=== PATIENT | male | born 1980 | race Caucasian/White ===

== ENCOUNTER 2016-05-15 17:23 | Observation (INO) | payer SELFPAY ==
[~2016-05-15] VITALS: Ht 182.9 cm; Wt 75.0 kg
[2016-05-15 17:26] VITALS: BP 144/96; PULSE 64; RESP 18; TEMP 99; O2SAT 97
[2016-05-15] MEDS ORDERED: SODIUM CHLOR 0.9% 1000 ML INJ 1,000 ML IV SCH (17:36)
[2016-05-15 17:38] VITALS: O2SAT 99
--- NOTE | 2016-05-15 17:39 | PD ---
HPI Chief Complaint: GI Complaint Time Seen by Provider: 17:32 Travel History International Travel<30 days: No Contact w/Intl Traveler<30days: No Traveled to known affect area: No History of Present Illness HPI 36-year-old male here for evaluation of nausea, vomiting, and epigastric abdominal discomfort. Symptoms started yesterday with nausea. Since around 10 AM today the patient has had several episodes of vomiting which consisted of bilious material. No hematemesis. States that he had diarrhea 2 days ago. He is having some epigastric discomfort when he vomits. No chest pain. He reports history of pancreatitis secondary to alcoholism. States he used to drink a significant amount of alcohol daily, however has decreased his amount to a few beers a day. Last alcoholic beverage was yesterday. No history of abdominal surgery. No fever or chills. [facility] Social History Alcohol Use: Yes Tobacco Use: Yes Allergies-Medications (Allergen,Severity, Reaction): Coded Allergies: Penicillin (Verified Allergy, Unknown, 05/15/16) Reported Meds & Prescriptions Reported Meds & Active Scripts Active Review of Systems Except as stated in HPI: all other systems reviewed are Neg Physical Exam Narrative GENERAL: Well-developed, well-nourished, comfortable, no acute distress. SKIN: Warm and dry. HEAD: Atraumatic. Normocephalic. EYES: Pupils equal and round. No scleral icterus. No injection or drainage. ENT: Mucous membranes pink and moist. CARDIOVASCULAR: Regular rate and rhythm. RESPIRATORY: No accessory muscle use. Clear to auscultation. Breath sounds equal bilaterally. GASTROINTESTINAL: Abdomen soft, non-tender, nondistended. Normal bowel sounds. MUSCULOSKELETAL: No obvious deformities. No clubbing. No cyanosis. No edema. NEUROLOGICAL: Awake and alert. No obvious cranial nerve deficits. Motor grossly within normal limits. Normal speech. PSYCHIATRIC: Appropriate mood and affect; insight and judgment normal. Data Data Last Documented VS Vital Signs Date Time Temp Pulse Resp B/P Pulse Ox O2 Delivery O2 Flow Rate FiO2 05/15/16 19:19 20 05/15/16 17:38 99 05/15/16 17:26 99.0 64 144/96 Room Air Orders Complete Blood Count With Diff (05/15/16 17:36) Comprehensive Metabolic Panel (05/15/16 17:36) Lipase (05/15/16 17:36) Iv Access Insert/Monitor (05/15/16 17:36) Ecg Monitoring (05/15/16 17:36) Oximetry (05/15/16 17:36) Ondansetron Inj (Zofran Inj) (05/15/16 17:45) Pantoprazole Inj (Protonix Inj) (05/15/16 17:45) Sodium Chlor 0.9% 1000 Ml Inj (Ns 1000 M (05/15/16 17:36) Sodium Chloride 0.9% Flush (Ns Flush) (05/15/16 17:45) Electrocardiogram (05/15/16 17:36) Al-Mag Hy-Si 40-40-4 Mg/Ml Liq (Mag-Al P (05/15/16 17:45) Lidocaine 2% Viscous (Xylocaine 2% Visco (05/15/16 17:45) Ct Abd/Pel W Iv Contrast(Rout) (05/15/16 18:37) Morphine Inj (Morphine Inj) (05/15/16 18:45) Ondansetron Inj (Zofran Inj) (05/15/16 18:45) Iohexol 350 Inj (Omnipaque 350 Inj) (05/15/16 18:46) Admit Order (Ed Use Only) (05/15/16 19:33) Sodium Chlor 0.9% 1000 Ml Inj (Ns 1000 M (05/15/16 19:45) Labs Laboratory Tests Test 05/15/16 17:40 White Blood Count 13.8 TH/MM3 Red Blood Count 4.33 MIL/MM3 Hemoglobin 13.6 GM/DL Hematocrit 39.9 % Mean Corpuscular Volume 92.2 FL Mean Corpuscular Hemoglobin 31.4 PG Mean Corpuscular Hemoglobin 34.1 % Concent Red Cell Distribution Width 12.8 % Platelet Count 225 TH/MM3 Mean Platelet Volume 8.6 FL Neutrophils (%) (Auto) 79.8 % Lymphocytes (%) (Auto) 14.5 % Monocytes (%) (Auto) 5.3 % Eosinophils (%) (Auto) 0.3 % Basophils (%) (Auto) 0.1 % Neutrophils # (Auto) 11.0 TH/MM3 Lymphocytes # (Auto) 2.0 TH/MM3 Monocytes # (Auto) 0.7 TH/MM3 Eosinophils # (Auto) 0.0 TH/MM3 Basophils # (Auto) 0.0 TH/MM3 CBC Comment DIFF FINAL Differential Comment Sodium Level 141 MEQ/L Potassium Level 3.9 MEQ/L Chloride Level 107 MEQ/L Carbon Dioxide Level 26.1 MEQ/L Anion Gap 8 MEQ/L Blood Urea Nitrogen 12 MG/DL Creatinine 1.44 MG/DL Estimat Glomerular Filtration 55 ML/MIN Rate Random Glucose 138 MG/DL Calcium Level 8.9 MG/DL Total Bilirubin 0.3 MG/DL Aspartate Amino Transf 15 U/L (AST/SGOT) Alanine Aminotransferase 21 U/L (ALT/SGPT) Alkaline Phosphatase 97 U/L Total Protein 7.7 GM/DL Albumin 4.2 GM/DL Lipase 684 U/L [facility] Medical Decision Making Medical Screen Exam Complete: Yes Emergency Medical Condition: Yes Interpretation(s) EKG: Sinus, rate 56, normal axis, normal intervals, no acute ischemic abnormality. Differential Diagnosis Gastroenteritis, gastritis, peptic ulcer disease, pancreatitis, hepatobiliary disease, dehydration, viral illness, food poisoning Narrative Course Vital signs reviewed. CBC shows WBC 13.8, hemoglobin 13.6, hematocrit 39.9, platelets 225, neutrophils 79%. CMP is markable for creatinine 1.44, GFR 55, otherwise unremarkable. Lipase is 684. CT abdomen pelvis shows mild acute uncomplicated pancreatitis. Patient was made aware of all findings. He was given pain medication and antiemetics. He still feels a little nauseous and is having some epigastric abdominal pain. He will be admitted for overnight observation for further treatment and evaluation of acute pancreatitis. Case discussed with hospitalist Dr. Allen who will admit the patient to her service. Diagnosis Primary Impression: Acute pancreatitis Qualified Code: K85.20 - Alcohol-induced acute pancreatitis, unspecified complication status Admitting Information Admitting Physician Requests: Observation Scripts Ondansetron Odt 4 Mg Tab4 Mg SL Q6HR PRN (Nausea/Vomiting) #10 TAB Ref 0 Prov:Raymond Richardson 05/16/16 Thiamine 100 Mg Bmc227 Mg PO DAILY #5 TAB Ref 0 Prov:Raymond Richardson 05/16/16 Pantoprazole (Protonix)40 Mg Tab40 Mg PO DAILY #30 TAB Ref 0 Prov:Raymond Richardson 05/16/16 Micah Murphy MD May 15, 2016 17:39
[2016-05-15] MEDS ORDERED: LIDOCAINE VISCOUS 2% SOLN 15 ML UDC PO ONE (17:45)
[2016-05-15] MEDS ORDERED: PANTOPRAZOLE SODIUM 40 MG VIAL IVP ONE (17:45)
[2016-05-15] MEDS ORDERED: ALUMINUM/MAGNESIUM/SIMETH 30 ML CUP PO ONE (17:45)
[2016-05-15] MEDS ORDERED: SODIUM CHLORIDE 0.9% FLUSH 5 ML FLUSH IVF PRN (17:45)
[2016-05-15] MEDS ORDERED: ONDANSETRON HCL 4 MG/2 ML VIAL IVP ONE (17:45)
[2016-05-15 18:05] LABS: BASOPHIL % 0.1 % (0.0-2.0); EOSINOPHIL % 0.3 % (0.0-4.0); HEMATOCRIT 39.9 % (39.0-51.0); HEMO FLAGS DIFF FINAL; LYMPH % 14.5 % (9.0-44.0); MEAN CELL VOLUME 92.2 FL (80.0-100.0); MEAN CORPUSCULAR HEMOGLOBIN 31.4 PG (27.0-34.0); MEAN CORPUSCULAR HGB CONC 34.1 % (32.0-36.0); MONO % 5.3 % (0.0-8.0); NEUT % 79.8 % (16.0-70.0); PLATELET COUNT 225 TH/MM3 (150-450); RED BLOOD COUNT 4.33 MIL/MM3 (4.50-5.90); RED CELL DISTRIBUTION WIDTH 12.8 % (11.6-17.2); WHITE BLOOD COUNT 13.8 TH/MM3 (4.0-11.0)
[2016-05-15 18:25] LABS: ANION GAP 8 MEQ/L (5-15); AST (GOT) 15 U/L (15-37); BICARBONATE 26.1 MEQ/L (21.0-32.0); BLOOD UREA NITROGEN 12 MG/DL (7-18); CHLORIDE 107 MEQ/L (98-107); GLOMERULAR FILTRATION RATE 55 ML/MIN (>89); POTASSIUM 3.9 MEQ/L (3.5-5.1); SODIUM (NA) 141 MEQ/L (136-145)
[2016-05-15 18:28] LABS: ALKALINE PHOSPHATASE 97 U/L (45-117); ALT (GPT) 21 U/L (12-78); TOTAL BILIRUBIN ADULT 0.3 MG/DL (0.2-1.0)
[2016-05-15] MEDS ORDERED: MORPHINE SULFATE 4 MG/ML INJ IV PUSH ONE (18:45)
[2016-05-15] MEDS ORDERED: ONDANSETRON HCL 4 MG/2 ML VIAL IV PUSH ONE (18:45)
[2016-05-15] MEDS ORDERED: IOHEXOL 350 MG/ML 10 ML VIAL (for RAD DIAG) IV ONE (18:46)
--- NOTE | 2016-05-15 19:05 | RADRPT ---
EXAM DATE/TIME: 05/15/2016 18:49 [facility] COMPARISON: No previous studies available for comparison. INDICATIONS : Abdominal pain with nausea vomiting and fever for two days IV CONTRAST: 93 cc Omnipaque 350 (iohexol) IV ORAL CONTRAST: No oral contrast ingested. RADIATION DOSE: 12.52 CTDIvol (mGy) MEDICAL HISTORY : Pancreatitis. SURGICAL HISTORY : None. ENCOUNTER: Initial ACUITY: 2 days PAIN SCALE: 5/10 LOCATION: Diffuse abdomen TECHNIQUE: Volumetric scanning of the abdomen and pelvis was performed. Using automated exposure control and ad justment of the mA and/or kV according to patient size, radiation dose was kept as low as reasonably achievable to obtain optimal diagnostic quality images. FINDINGS: LOWER LUNGS: The visualized lower lungs are clear. LIVER: Homogeneous density without lesion. There is no dilation of the biliary tree. No calcified gallston es. SPLEEN: Normal size without lesion. PANCREAS: There is edema around the pancreas, fairly diffusely but especially the body and head. Pancreatic par enchyma enhances normally. There is no pancreatic duct dilatation. KIDNEYS: Normal in size and shape. There is no mass, stone or hydronephrosis. ADRENAL GLANDS: Within normal limits. VASCULAR: There is no aortic aneurysm. BOWEL/MESENTERY: The stomach, small bowel, and colon demonstrate no acute abnormality. There is no free intraperitone al air or fluid. The appendix is well-visualized, normal. ABDOMINAL WALL: Within normal limits. RETROPERITONEUM: There is no lymphadenopathy. BLADDER: No wall thickening or mass. REPRODUCTIVE: Within normal limits. INGUINAL: There is no lymphadenopathy or hernia. MUSCULOSKELETAL: Within normal limits for patient age. CONCLUSION: CT findings typical of mild, acute, uncomplicated pancreatitis. No definite gallstones. Anupam Day MD on May 15, 2016 at 19:01 Board Certified Radiologist. This report was verified electronically.
[2016-05-15] MEDS ORDERED: SODIUM CHLOR 0.9% 1000 ML INJ 1,000 ML IV ONE (19:45)
[2016-05-15 19:51] VITALS: BP 140/82; PULSE 66; RESP 18; TEMP 98; O2SAT 98
[2016-05-15] MEDS ORDERED: SODIUM CHLORIDE 0.9% FLUSH 5 ML FLUSH FLUSH PRN (20:15)
[2016-05-15] MEDS ORDERED: NALOXONE HCL 0.4 MG/ML AMP IV PRN (20:15)
[2016-05-15] MEDS: SODIUM CHLOR 0.9% 1000 ML INJ 1,000 ML IV SCH (20:20)
[2016-05-15] MEDS ORDERED: SODIUM CHLORIDE 0.9% FLUSH 5 ML FLUSH FLUSH SCH (21:00)
[2016-05-15 21:21] VITALS: BP 142/88; PULSE 68; RESP 20; TEMP 98.2; O2SAT 97
[2016-05-15 21:40] VITALS: PULSE 65
[2016-05-15 23:33] VITALS: BP 145/87; PULSE 54; RESP 20; TEMP 98.4; O2SAT 100
[2016-05-16] MEDS: ONDANSETRON HCL 4 MG/2 ML VIAL IVP PRN ×2 (00:12→06:19)
[2016-05-16] MEDS: MORPHINE SULFATE 4 MG/ML INJ IV PUSH PRN ×3 (00:12→09:41)
--- NOTE | 2016-05-16 00:56 | HHI.HP ---
[facility] No Primary Care Physician Admission Diagnosis acute pancreatitis Diagnoses: Chief Complaint: abd pain, n/v Travel History International Travel<30 Days: No Contact w/Intl Traveler <30 Da: No Traveled to Known Affected Are: No History of Present Illness 36 y/o male with a history of etoh abuse and pancreatitis presented to the ED with complaints of nausea, vomiting, and epigastric abdominal pain. Patient states he woke up this morning and with nausea, vomiting and mid upper abdominal pain. His emesis was yellow bile, he denies any blood or coffee ground emesis. He states he has had these symptoms in the past associated with pancreatitis and usually just takes anti-antiemetics and pain medications at home. Patient is currently from [place], he states he is in [place] for work and did not pack his pain medications. Patient states he drinks about 3 or 4 beers a day, sometimes 7 or 8. He denies any withdrawal symptoms if he does not drink daily. Patient is very resistant to using Ativan for withdrawals. He denies any chest pain, shortness of breath, fever, he states he did wake up this morning with chills. Review of Systems Constitutional: DENIES: Fever, Chills Respiratory: DENIES: Cough, Shortness of breath Cardiovascular: DENIES: Chest pain, Lower Extremity Edema, Orthopnea Gastrointestinal: COMPLAINS OF: Abdominal pain, Nausea, Vomiting, DENIES: Constipation, Diarrhea Genitourinary: DENIES: Hematuria, Dysuria Musculoskeletal: DENIES: Back pain, Neck pain Integumentary: DENIES: Rash Hematologic/lymphatic: DENIES: Lymphadenopathy Immunologic/allergic: DENIES: Urticaria Neurologic: DENIES: Headache, Localized weakness Past Family Social History Past Medical History Pancreatitis last episode one year ago 2014 Past Surgical History Patient denies any surgical history Reported Medications Reported Meds & Active Scripts Active No Active Prescriptions or Reported Medications Allergies: Coded Allergies: Penicillin (Verified Allergy, Unknown, 05/15/16) Active Ordered Medications Current Medications Medications (Trade) Dose Ordered Sig/Michael Route Start Time Stop Time Status Last Admin (NS 1000 ml Inj) 1,000 ml @ 100 mls/hr Q10H IV 05/15/16 20:10 05/15/16 20:20 (NS Flush) 2 ml UNSCH PRN FLUSH 05/15/16 20:15 (NS Flush) 2 ml BID FLUSH 05/15/16 21:00 05/15/16 20:20 (Zofran Inj) 4 mg Q6H PRN IVP 05/15/16 20:15 05/16/16 00:12 (Narcan Inj) 0.4 mg UNSCH PRN IV 05/15/16 20:15 (Morphine Inj) 2 mg Q3H PRN IV PUSH 05/15/16 20:15 05/16/16 00:12 Social History Tobacco use: 1 05/01 PPD Alcohol use: 3-4 beers a day/ sometimes 7-8 Illicit drug use: Denies Physical Exam Vital Signs Vital Signs Date Time Temp Pulse Resp B/P Pulse Ox O2 Delivery O2 Flow Rate FiO2 05/15/16 23:33 98.4 54 20 145/87 100 05/15/16 21:21 98.2 68 20 142/88 97 05/15/16 19:51 98.0 66 18 140/82 98 Room Air 05/15/16 19:19 20 05/15/16 17:38 99 05/15/16 17:26 99.0 64 18 144/96 97 Room Air Physical Exam GENERAL: This is a well-nourished, well-developed patient, in no apparent distress. SKIN: No rashes, ecchymoses or lesions. Cool and dry. HEAD: Atraumatic. Normocephalic. EYES: Pupils equal round and reactive. ENT: Nose without bleeding, purulent drainage or septal hematoma. Airway patent. NECK: Trachea midline. No JVD CARDIOVASCULAR: Regular rate and rhythm without murmurs, gallops, or rubs. RESPIRATORY: Clear to auscultation. Breath sounds equal bilaterally. No wheezes , rales, or rhonchi. GASTROINTESTINAL: Abdomen soft, epigastric tenderness, nondistended. No guarding. MUSCULOSKELETAL: Extremities without clubbing, cyanosis, or edema. No joint tenderness, effusion, or edema noted. No calf tenderness. NEUROLOGICAL: Awake and alert. Motor and sensory grossly within normal limits. Normal speech. Laboratory Laboratory Tests Test 05/15/16 17:40 White Blood Count 13.8 Red Blood Count 4.33 Hemoglobin 13.6 Hematocrit 39.9 Mean Corpuscular Volume 92.2 Mean Corpuscular Hemoglobin 31.4 Mean Corpuscular Hemoglobin 34.1 Concent Red Cell Distribution Width 12.8 Platelet Count 225 Mean Platelet Volume 8.6 Neutrophils (%) (Auto) 79.8 Lymphocytes (%) (Auto) 14.5 Monocytes (%) (Auto) 5.3 Eosinophils (%) (Auto) 0.3 Basophils (%) (Auto) 0.1 Neutrophils # (Auto) 11.0 Lymphocytes # (Auto) 2.0 Monocytes # (Auto) 0.7 Eosinophils # (Auto) 0.0 Basophils # (Auto) 0.0 CBC Comment DIFF FINAL Differential Comment Sodium Level 141 Potassium Level 3.9 Chloride Level 107 Carbon Dioxide Level 26.1 Anion Gap 8 Blood Urea Nitrogen 12 Creatinine 1.44 Estimat Glomerular Filtration 55 Rate Random Glucose 138 Calcium Level 8.9 Total Bilirubin 0.3 Aspartate Amino Transf 15 (AST/SGOT) Alanine Aminotransferase 21 (ALT/SGPT) Alkaline Phosphatase 97 Total Protein 7.7 Albumin 4.2 Lipase 684 Result Diagram: 05/15/16 1740 05/15/16 1740 Imaging Last Impressions Abdomen/Pelvis CT 05/15/16 1837 Signed Impressions: Service Date/Time: Sunday, May 15, 2016 18:49 - CONCLUSION: CT findings typical of mild, acute, uncomplicated pancreatitis. No definite gallstones. Anupam Day MD Assessment and Plan Problem List: (1) Acute pancreatitis ICD Code: K85.90 Status: Resolved (2) LAIM (acute kidney injury) ICD Code: N17.9 Status: Resolved (3) Alcohol abuse ICD Code: F10.10 Status: Acute (4) Tobacco abuse ICD Code: Z72.0 Status: Acute Assessment and Plan 36 y/o male with a history of etoh abuse presented with: Acute pancreatitis Images reviewed: CT shows typical of mild, acute, uncomplicated pancreatitis. No definite gallstones. Labs: lipase 684 -supportive IVF NS @100 -antiemetics as needed -Lipase in am -pain management with IV Morphine LIAM Labs: creatine 1.4, unknown baseline -cont. IVF -BMP in AM Alcohol abuse/tobacco abuse -Encouraged to quit -Ativan IV PRN -Withdrawal precautions DVT prophylaxis: SCDs Written by Suha CARRANZA, acting as scribe for Dr. Allen on 05/16/16 at 0335 . The documentation accurately reflects the work performed [id number] and decisions made by me and the physician Dr Allen on 05/16/16. The documentation accurately reflects the work performed [id number] by me on at 0335 Discussed Condition With Patient Problem Qualifiers (1) Acute pancreatitis: Qualified Code: K85.20 - Alcohol-induced acute pancreatitis, unspecified complication status Suha Espino May 16, 2016 00:56 Ailyn Allen MD May 23, 2016 20:31
[2016-05-16] MEDS ORDERED: FLUMAZENIL 0.5 MG/5 ML VIAL IV PUSH PRN (05:00)
[2016-05-16] MEDS ORDERED: SODIUM CHLORIDE 0.9% FLUSH 5 ML FLUSH IV FLUSH PRN (05:00)
[2016-05-16] MEDS ORDERED: LORazepam 1 MG TAB PO PRN (05:00)
[2016-05-16] MEDS ORDERED: LORazepam 2 MG/ML VIAL IV PUSH PRN ×4 (05:00)
[2016-05-16] MEDS ORDERED: LORazepam 2 MG TAB PO PRN (05:00)
[2016-05-16 06:04] VITALS: BP 139/84; PULSE 62; RESP 20; TEMP 98.3; O2SAT 97
[2016-05-16] MEDS: SODIUM CHLOR 0.9% 1000 ML INJ 1,000 ML IV SCH ×2 (06:19→09:35)
[2016-05-16 07:25] LABS: AUTOMATED NEUTROPHIL # 8.6 TH/MM3 (1.8-7.7); BASOPHIL % 0.2 % (0.0-2.0); EOSINOPHIL % 0.3 % (0.0-4.0); HEMATOCRIT 35.6 % (39.0-51.0); HEMO FLAGS DIFF FINAL; LYMPHOCYTE # 1.8 TH/MM3 (1.0-4.8); MEAN CELL VOLUME 92.8 FL (80.0-100.0); MEAN CORPUSCULAR HEMOGLOBIN 30.9 PG (27.0-34.0); MEAN CORPUSCULAR HGB CONC 33.3 % (32.0-36.0); MONO % 6.4 % (0.0-8.0); NEUT % 77.1 % (16.0-70.0); PLATELET COUNT 190 TH/MM3 (150-450); RED BLOOD COUNT 3.84 MIL/MM3 (4.50-5.90); RED CELL DISTRIBUTION WIDTH 12.7 % (11.6-17.2); WHITE BLOOD COUNT 11.1 TH/MM3 (4.0-11.0)
[2016-05-16 07:45] LABS: ALKALINE PHOSPHATASE 77 U/L (45-117); ALT (GPT) 16 U/L (12-78); ANION GAP 8 MEQ/L (5-15); AST (GOT) 11 U/L (15-37); BLOOD UREA NITROGEN 9 MG/DL (7-18); CHLORIDE 109 MEQ/L (98-107); GLOMERULAR FILTRATION RATE 75 ML/MIN (>89); POTASSIUM 3.6 MEQ/L (3.5-5.1); SODIUM (NA) 142 MEQ/L (136-145); TOTAL BILIRUBIN ADULT 0.3 MG/DL (0.2-1.0)
[2016-05-16 08:00] VITALS: PULSE 72
[2016-05-16 08:45] VITALS: BP 135/76; PULSE 80; RESP 20; TEMP 99.2; O2SAT 96
[2016-05-16] MEDS ORDERED: THIAMINE INJ 100 MG in SODIUM CHLORIDE 0.9% INJ 100 ML IV SCH (09:00)
[2016-05-16] MEDS ORDERED: SODIUM CHLORIDE 0.9% FLUSH 5 ML FLUSH IV FLUSH SCH (09:00)
--- NOTE | 2016-05-16 09:32 | HHI.PR ---
Subjective Remarks Follow-up for abdominal pain. The patient states that his symptoms have improved some. He still having some nausea and epigastric pain. He states his mid abdominal cramping has resolved. He states that this is his third bout of pancreatitis, and his symptoms are usually improved with bowel rest and nausea control. He had some loose stools a few days ago, denies any black or tarry stools. He's never had an upper endoscopy. He denies any NSAID use. He does smoke and drink alcohol. Tolerating clears. Objective Vitals Vital Signs Date Time Temp Pulse Resp B/P Pulse Ox O2 Delivery O2 Flow Rate FiO2 05/16/16 08:45 99.2 80 20 135/76 96 05/16/16 06:30 21 05/16/16 06:04 98.3 62 20 139/84 97 05/15/16 23:33 98.4 54 20 145/87 100 05/15/16 21:40 65 05/15/16 21:21 98.2 68 20 142/88 97 05/15/16 19:51 98.0 66 18 140/82 98 Room Air 05/15/16 19:19 20 05/15/16 17:38 99 05/15/16 17:26 99.0 64 18 144/96 97 Room Air I/O 05/15/16 05/15/16 05/15/16 05/16/16 05/16/16 05/16/16 07:00 15:00 23:00 07:00 15:00 23:00 Intake Total 2120 ml Balance 2120 ml Intake Oral 120 ml IV Total 2000 ml Result Diagram: 05/16/16 0604 05/16/16 0604 Imaging Last Impressions Abdomen/Pelvis CT 05/15/16 1837 Signed Impressions: Service Date/Time: Sunday, May 15, 2016 18:49 - CONCLUSION: CT findings typical of mild, acute, uncomplicated pancreatitis. No definite gallstones. Anupam Day MD Objective Remarks GENERAL: Well-developed well-nourished. In no acute distress. SKIN: Warm and dry. No lesions noted. HEENT: Normocephalic. Pupils equal and round. Mucous membranes pink and moist. CARDIOVASCULAR: Regular rate and rhythm. No murmur appreciated. RESPIRATORY: No accessory muscle use. Clear to auscultation. Breath sounds equal bilaterally. GASTROINTESTINAL: Abdomen soft, non-tender, nondistended. Bowel sounds x4. MUSCULOSKELETAL: No obvious deformities. No clubbing or cyanosis. No edema. NEUROLOGICAL: Awake and alert. No focal neurological deficits. Moves upper and lower extremities spontaneously. Normal speech. PSYCHIATRIC: Appropriate mood and affect; insight and judgment normal. A/P Problem List: (1) Acute pancreatitis ICD Code: K85.90 Status: Resolved (2) LIAM (acute kidney injury) ICD Code: N17.9 Status: Resolved (3) Alcohol abuse ICD Code: F10.10 Status: Acute (4) Tobacco abuse ICD Code: Z72.0 Status: Acute (5) Epigastric abdominal pain ICD Code: R10.13 Status: Acute Assessment and Plan 36 y/o male with a history of etoh abuse presented with: Abdominal pain, primarily epigastric Acute pancreatitis Images reviewed: CT shows typical of mild, acute, uncomplicated pancreatitis. No definite gallstones. Labs: lipase 684, improved to 285. Normal LFTs. -IVF -antiemetics as needed -Consult gastroenterology -PPI IV -IV morphine as needed for pain LIAM Labs: creatine 1.4, unknown baseline, improved to 1.1 with IVF -cont. IVF until tolerating intake Alcohol abuse/tobacco abuse -Counseled on cessation -CIWA protocol and rally pack Leukocytosis: WBC 13.8/1.1. Likely reactive secondary to retching. Afebrile. Monitor. DVT prophylaxis: SCDs Discharge Planning Follow-up GI recommendations. 1800 cleared by GI for DC. Tolerating oral intake, diet as tolerated. Discussed with Dr. De Jesus. Discharge home today. Continue PPI and thiamine. Attending Statement The exam, history, and the medical decision-making described in the above note were completed with the assistance of the mid-level provider. I reviewed and agree with the findings presented. I attest that I had a [id number] encounter with the patient on the same day, and personally performed and documented my assessment and findings in the medical record. Problem Qualifiers (1) Acute pancreatitis: Qualified Code: K85.20 - Alcohol-induced acute pancreatitis, unspecified complication status Raymond Richardson May 16, 2016 09:32 Richy De Jesus MD May 25, 2016 07:29
[2016-05-16] MEDS ORDERED: PANTOPRAZOLE SODIUM 40 MG VIAL IV PUSH SCH (10:00)
--- NOTE | 2016-05-16 10:32 | EKG ---
Date Performed: 05/15/2016 Time Performed: 17:57:12 PTAGE: 36 years EKG: SINUS BRADYCARDIA BORDERLINE ECG NO PREVIOUS TRACING DOCTOR: Virgil Valentin Interpretating Date/Time 05/16/2016 10:32:11
--- NOTE | 2016-05-16 11:41 | PD.CONS ---
HPI History of Present Illness This is a 36 year old male patient with a hx of recurrent pancreatitis secondary to ETOH abuse, [place]. He continues to drink ETOH, although he does not state exactly how much he takes. He does report that he had 5 drinks on Sunday and another 5 on Sunday. He started having nausea on Sunday. He had a couple of coconut granola bars for breakfast and skipped lunch because of the nausea. He then had pizza for dinner. He went to bed and when he woke up the next day with severe nausea and later started having vomiting consisting of bilious material. He reports that he did have some mild to moderate epigastric pain with radiation to his back, mild fever and chills. He is not having any jaundice. He reports that he had a few loose stools on , but has not had diarrhea. He reports that his symptoms are the same as his other episodes of pancreatitis and are aggravated by any po intake. He denies any new medications, hx of gallbladder dz, family hx of pancreatitis. (Thelma Ann) [facility] Past Medical History Recurrent pancreatitis secondary to ETOH, last episode about 1 year ago Past Surgical History Denies (Thelma Ann) Coded Allergies: Penicillin (Verified Allergy, Unknown, 05/15/16) Medications Allergies Coded Allergies Type Severity Reaction Last Updated Verified Penicillin Allergy Unknown 05/15/16 Yes Active Scripts Medications Dose Route/Sig Days Date Category No Active Prescriptions or Reported Medications Rx Family History Denies Social History Tobacco use: 05/01 PPD Alcohol use: 3-4 beers a day/ sometimes 7-8 Illicit drug use: Denies (Thelma Ann) Review of Systems Constitutional: COMPLAINS OF: Fatigue, Fever, Chills, DENIES: Weight loss Respiratory: DENIES: Cough Cardiovascular: DENIES: Chest pain Gastrointestinal: COMPLAINS OF: Abdominal pain, Diarrhea, Nausea, Vomiting, Anorexia, DENIES: Black stools, Bloody stools, Constipation, Heartburn, Hematemesis Musculoskeletal: COMPLAINS OF: Back pain, Neck pain Integumentary: DENIES: Rash, Jaundice Hematologic/lymphatic: DENIES: Bruising Neurologic: DENIES: Headache Psychiatric: DENIES: Confusion (Thelma Ann) GI Exam Vitals I&O Vital Signs Date Time Temp Pulse Resp B/P Pulse Ox O2 Delivery O2 Flow Rate FiO2 05/16/16 09:50 20 05/16/16 08:45 99.2 80 20 135/76 96 05/16/16 08:00 72 05/16/16 06:04 98.3 62 20 139/84 97 05/15/16 23:33 98.4 54 20 145/87 100 05/15/16 21:40 65 05/15/16 21:21 98.2 68 20 142/88 97 05/15/16 19:51 98.0 66 18 140/82 98 Room Air 05/15/16 19:19 20 05/15/16 17:38 99 05/15/16 17:26 99.0 64 18 144/96 97 Room Air I/O 05/15/16 05/15/16 05/15/16 05/16/16 05/16/16 05/16/16 07:00 15:00 23:00 07:00 15:00 23:00 Intake Total 2120 ml 240 ml Output Total 250 ml Balance 2120 ml -10 ml Intake Oral 120 ml 240 ml IV Total 2000 ml Output Urine Total 250 ml Imaging Last Impressions Abdomen/Pelvis CT 05/15/16 1837 Signed Impressions: Service Date/Time: Sunday, May 15, 2016 18:49 - CONCLUSION: CT findings typical of mild, acute, uncomplicated pancreatitis. No definite gallstones. Anupam Day MD Laboratory Test 05/15/16 05/16/16 17:40 06:04 White Blood Count 13.8 TH/MM3 11.1 TH/MM3 Red Blood Count 4.33 MIL/MM3 3.84 MIL/MM3 Hemoglobin 13.6 GM/DL 11.9 GM/DL Hematocrit 39.9 % 35.6 % Mean Corpuscular Volume 92.2 FL 92.8 FL Mean Corpuscular Hemoglobin 31.4 PG 30.9 PG Mean Corpuscular Hemoglobin 34.1 % 33.3 % Concent Red Cell Distribution Width 12.8 % 12.7 % Platelet Count 225 TH/MM3 190 TH/MM3 Mean Platelet Volume 8.6 FL 9.0 FL Neutrophils (%) (Auto) 79.8 % 77.1 % Lymphocytes (%) (Auto) 14.5 % 16.0 % Monocytes (%) (Auto) 5.3 % 6.4 % Eosinophils (%) (Auto) 0.3 % 0.3 % Basophils (%) (Auto) 0.1 % 0.2 % Neutrophils # (Auto) 11.0 TH/MM3 8.6 TH/MM3 Lymphocytes # (Auto) 2.0 TH/MM3 1.8 TH/MM3 Monocytes # (Auto) 0.7 TH/MM3 0.7 TH/MM3 Eosinophils # (Auto) 0.0 TH/MM3 0.0 TH/MM3 Basophils # (Auto) 0.0 TH/MM3 0.0 TH/MM3 CBC Comment DIFF FINAL DIFF FINAL Differential Comment Sodium Level 141 MEQ/L 142 MEQ/L Potassium Level 3.9 MEQ/L 3.6 MEQ/L Chloride Level 107 MEQ/L 109 MEQ/L Carbon Dioxide Level 26.1 MEQ/L 25.0 MEQ/L Anion Gap 8 MEQ/L 8 MEQ/L Blood Urea Nitrogen 12 MG/DL 9 MG/DL Creatinine 1.44 MG/DL 1.10 MG/DL Estimat Glomerular Filtration 55 ML/MIN 75 ML/MIN Rate Random Glucose 138 MG/DL 109 MG/DL Calcium Level 8.9 MG/DL 7.9 MG/DL Total Bilirubin 0.3 MG/DL 0.3 MG/DL Aspartate Amino Transf 15 U/L 11 U/L (AST/SGOT) Alanine Aminotransferase 21 U/L 16 U/L (ALT/SGPT) Alkaline Phosphatase 97 U/L 77 U/L Total Protein 7.7 GM/DL 5.9 GM/DL Albumin 4.2 GM/DL 3.2 GM/DL Lipase 684 U/L 285 U/L Physical Examination HEENT: Normocephalic; atraumatic; no jaundice. Throat is clear. NECK: Neck is supple, no JVD, no lymphadenopathy. CHEST: CTA CARDIAC: RRR ABDOMEN: Soft, nondistended, mild epigastric tenderness; no hepatosplenomegaly ; bowel sounds are present in all four quadrants. EXTREMITIES: No clubbing, cyanosis, or edema. SKIN: Normal; no rash; no jaundice. [employer]: No focal deficits; alert and oriented times three. (Thelma Ann) Assessment and Plan Plan ASSESSMENT: - Recurrent acute pancreatitis related to ETOH abuse. Abdomen/Pelvis CT (05/15/16 )----> CT findings typical of mild, acute, uncomplicated pancreatitis. No definite gallstones. Pt has had several episodes and continues to drink ETOH on a daily basis. His WBC is improving. His lipase has normalized. Clinically, he is stable. Cont. IVF, okay to advance diet and d/c home once tolerating po. D/W patient importance of complete ETOH cessation. He does not feel that this is a problem and has no intentions of stopping. - Anemia, mild. Likely dilutional. No evidence of blood loss. - LIAM. Improved. PLAN: - Low fat diet - IVF - PPI - Recommend complete etoh cessation- d/w patient - Okay to d/c home once tolerating diet - GI will sign off, please reconsult as needed - Pt seen and examined by Dr. Renner and myself and this note is written on his behalf (Thelma nAn) Physician Comments Seen and examined with Ms. Seth CARRANZA, doing well. Tolerating liquids. Not interested in quitting ETOH. 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 Advance diet. Can dc home with gi fu with local GI. Thank you (Eri Renner MD) Thelma Ann May 16, 2016 11:40 Eri Renner MD May 16, 2016 12:24
[2016-05-16 12:00] VITALS: BP 137/85; PULSE 84; RESP 18; TEMP 97; O2SAT 96
[2016-05-16] MEDS ORDERED: ACETAMINOPHEN 325 MG TAB PO PRN (14:15)
[2016-05-16 16:00] VITALS: BP 130/75; PULSE 78; RESP 18; TEMP 96.8; O2SAT 94
[2016-05-16] MEDS ORDERED: THIA100T PO (18:00)
[2016-05-16] MEDS ORDERED: PROT40TA PO (18:00)
[2016-05-16] MEDS ORDERED: ONDA4TAB7 SL (18:01)
== END 2016-05-16 21:53 | disposition home or self-care (01) ==
LOC: NEPA 17:23 → NEDA 19:34 → NEPHCDU 21:09
PROVIDERS: ADMIT Internal Medicine; ATTEND Internal Medicine
DX: K85.20 Alcohol induced acute pancreatitis without necrosis or infection (principal); N17.9 Acute kidney failure, unspecified; F10.10 Alcohol abuse, uncomplicated; F17.200 Nicotine dependence, unspecified, uncomplicated; R19.7 Diarrhea, unspecified; D64.9 Anemia, unspecified; R00.1 Bradycardia, unspecified
CPT/HCPCS: 74177; 80053; 83690; 85025; 93005; 96361; 96374; 96375; 96376; 99285; C9113; G0378; J2270; J2405; J3411; J7030; Q9967